=== PATIENT | female | born 1985 | race Caucasian/White ===

== ENCOUNTER 2016-12-04 02:20 | Inpatient (IN) | payer MEDICAID, OTHER ==
[2016-12-05 01:11] VITALS: BMI 31.4
[2016-12-05] MEDS ORDERED: Benzocaine/Menthol 20%-0.5% Topical Spray (60 ml) TOP PRN (05:45)
[2016-12-05] MEDS ORDERED: Oxycodone/Acetaminophen 5/325 mg Tab PO PRN ×5 (05:45→08:31)
[2016-12-05 07:09] LABS: URINE BILIRUBIN NEGATIVE (NEGATIVE); URINE BLOOD 1+ (NEGATIVE); URINE COLOR YELLOW (YELLOW); URINE GLUCOSE (UA) Normal (Normal); URINE KETONE NEGATIVE (NEGATIVE); URINE PROTEIN NEGATIVE (NEGATIVE); URINE UROBILINOGEN Normal mg/dL (0.2-1.0)
[2016-12-05 07:10] LABS: RBC URINE 3 /hpf (0-3); URINE LEUKOCYTE ESTERASE 1+ Leu/uL (Negative); WBC URINE 13 /hpf (0-5)
[2016-12-05 07:12] LABS: BLOOD UREA NITROGEN 6 mg/dL (7-17); GFR AFRICAN-AMERICAN > 60; GLUCOSE,RANDOM 85 mg/dL (65-105); SODIUM 133 mmol/L (132-148)
[2016-12-05 07:13] LABS: BILIRUBIN,TOTAL 0.5 mg/dL (0.2-1.3); CALCIUM 9.5 mg/dl (8.6-10.4); CARBON DIOXIDE 18 mmol/L (22-30); CHLORIDE 103 mmol/L (98-107); POTASSIUM 3.9 mmol/L (3.6-5.2); TOTAL PROTEIN 7.4 g/dL (6.3-8.3)
[2016-12-05 07:14] LABS: ALKALINE PHOSPHATASE 117 U/L (38-126); ALT/SGPT 25 U/L (9-52); AST/SGOT 23 U/L (14-36)
[2016-12-05] MEDS ORDERED: Lidocaine 2% Inj (20ml) ONE (07:49)
--- NOTE | 2016-12-05 08:16 | OBADHP ---
Datetime: 12/04/2016 19:22 Presentation-Admit: Vertex FHR - Baseline A Provider: 120 Amniotic Fluid Color, Provider: Meconium, Light Membranes, Provider: Ruptured Gestation - Est Wks by US: 39.0 Vital Signs Provider: Reviewed; Within Normal Limits NICHD Variability Prov Fetus A: Moderate 6-25bpm NICHD Accel Fetus A IP Provider: 15X15 FHR Category Provider Fetus A: Category I NICHD Decel Fetus A IP Provider: None Dilatation, Provider: 4 Effacement, Provider: 80 Station, Provider: -1 Datetime: 12/04/2016 14:21 IP Chief Complaint Other: at 39 weeks Gestation complains SROM 12/03/16 at 1000, clear fluid and uterine contractions today. Denies vaginal bleeding. States decrease movement. Admit Comment, IP Provider: SROM in Early Labor. Admit for Dr. Hanson for Labor Augmentation and Vagi nal Delivery. @ 39+ wks with LOF since 12/03/16 in evenign with small spurts, clear fluid, with irregular cr amping, denies VB, +FM. OB: Transfer of PNC REALTIME REPORTER: denies hx of fiboirds, ovarian cyst, STI, abnormal pap PMH: dneies PSH denies FHX: non contributiory NKDA MEDS: PNV G1Pp @ 39+ wks for IOL due to PPROM, gbs negative -admit ot L+D -npo, ivf -conto toco and efm -cervidl -pain managemetn prn Pelvic Type - PN: Adequate Extremities - PN: Normal Abdomen - PN: Normal Back - PN: Normal Breast - PN: Not Done Lungs - PN: Normal Heart - PN: Normal Thyroid - PN: Not Done Neurologic - PN: Not Done HEENT - PN: Not Done General - PN: Normal Weight - Estimated: 3200 Nitrazine Provider: Positive IP Hx Assessment: The History has been Reviewed and is Current IP Chief Complaint: Uterine contractions; Suspected ruptured membranes Genitourinary Exam: Normal DTRs - PN: Normal EGA AdmitDate IP: 39.3 IP Adm Impression: Term, intrauterine ; Active labor; Ruptured Membranes IP Admit Plan: Admit to unit; Initiate labor augmentation protocol
--- NOTE | 2016-12-05 08:16 | OBPN ---
Datetime: 12/05/2016 05:33 IP Progress Impression: Normal progression of labor IP Informed Consent Obtain: Vaginal Delivery IP Progress Plan: Continue present management; Induction Membranes, Provider: Ruptured Amniotic Fluid Color, Provider: Clear Contraction Comments Provider: q 2-3 min FHR - Baseline A Provider: 145 Gestation - Est Wks by US: 39.4 Weight - Estimated: 3300 Presentation-Admit: Vertex IP Progress Note Comment: pt seen for prgoression of labor after complianing of pressure, s/p epidur al, +FM, +LOF, denies VB, reports contraction but pain well controlled with epidural VSS VE: /+1 A/P @ 39.4 wks GA IOL for PROM, fully dilated -will start pushign with pt -anticipate nsvsd -cont current managmet Vital Signs Provider: Reviewed NICHD Accel Fetus A IP Provider: 15X15 NICHD Variability Prov Fetus A: Moderate 6-25bpm Dilatation, Provider: 10 Effacement, Provider: 100 Station, Provider: 1
--- NOTE | 2016-12-05 08:17 | OBDS ---
DELIVERY PERSONNEL Delivery Doctor: Janusz Hanson MD Scrub Nurse: Sammi Smith Administrative Professional: Leigh Reddy RN MATERNAL INFORMATION Delivery Anesthesia: Local; Epidural Medications in Delivery: Hemabate 250mcg IMx 1; Pitocin 20 units IV Estimated Blood Loss (ml): 300 Maternal Complications: None RN Comments: Liveborn Baby Boy. 9-9. Provider Comments: pt was fully dilated due to maternal exhaustion, OP positon and pushign for 3 stan r pt gave verbal consent for vacumn delivery attempt. Pt was pushing, vaccumn applied +3 station, sut ure palated prior no cervix identifed, 40cm HG , 1 pull atraumtic, deliveyr of head in direct OP post ion, loose nucha cord x 1 easily reduced, vacumn removed. thick meconium fluide, antrumatic, spontaeo us dleivy erof anterior followed by posterior shoulder followed by dleivey rof body. umbilcal cord cl amped and cut baby handed to pediatricina. cord gases collected and sent x 2. Spontaneous deliveyr of intact placent with membrnae, fundus boggy, lower uteirne segment bogyy, straight cathether inserted , 100 cclear yello urine obtained, bminaula massage, hemabet IM x 1 given. funuds firm, lower uteirn semgment firm, good hemostais, second degree perienal laceratoin noted and repaired with 2-[address] Good hemosis, co compliationd. Live male direct OP presenation vaclum assistned delivery ebl 300 ml 2nd degree perineal laceraton apgs 9,9 weigh [id number] grams LABOR SUMMARY EDC: 12/08/2016 00:00 No. Babies in Womb: 1 Attempted: No Labor Anesthesia: Epidural LABOR INFORMATION Reason for Induction: Not Applicable Onset of Labor: 12/05/2016 12:00 Cervical Ripening Agents: Cervidil Oxytocin: N/A Group B Beta Strep: Negative Antibiotics # of Doses: 0 Steroids Given: None Reason Steroids Not Administered: Not Applicable MEMBRANES Membranes Rupture Method: Spontaneous Rupture of Membranes: 12/03/2016 10:00 Length of Rupture (hrs): 45.73 Amniotic Fluid Color: Light Meconium Amniotic Fluid Amount: Large Amniotic Fluid Odor: Normal STAGES OF LABOR Stage 3 hrs: 0 Stage 3 min: 5 Total Time in Labor hrs: -4 Total Time in Labor min: -11 VAGINAL DELIVERY Episiotomy: None Laceration Extension: Second Degree Laceration Type: Perineal Laceration Repair: Yes Initial Vag Sponge Count: 10 Initial Vag Sharps Count: 1 Count Comment: 1 needle and 1 suture needle BABY A INFORMATION Delivery Date/Time: 12/05/2016 07:44 Method of Delivery: Vaginal Born in Route : No : Successful Forceps: N/A Vacuum Extraction: Successful Shoulder Dystocia : No ASSISTED DELIVERY BABY A Indication for Assisted Delivery: Maternal exhaustion Catheter Prior to Procedure: No Vacuum Number of Pulls: 1 Vacuum Number of PopOffs: 0 Vacuum Maximum Pressure Obtained: 40 Reduce Pressure btwn Ctx: Yes Vacuum Integration Assistant: [place] II Total Time Vacuum Applied: 5 seconds SHOULDER DYSTOCIA BABY A Delivery Date/Time: 12/05/2016 07:44 PRESENTATION/POSITION BABY A Presentation: Cephalic Cephalic Presentation: Vertex Vertex Position: DIrect OP Breech Presentation: N/A PLACENTA INFORMATION BABY A Placenta Delivery Time : 12/05/2016 07:49 Placenta Method of Delivery: Spontaneous Placenta Status: Delivered SCORES BABY A Heart Rate 1 min: >100 bpm Resp Effort 1 min: Good Cry Reflex Irritability 1 min: Cough or Sneeze or Pulls Away Muscle Tone 1 min: Active Motion Color 1 min: Body [place], Extremities Blue Resuscitation Effort 1 min: N/A SCORE 1 MIN: 9 Heart Rate 5 min: >100 bpm Resp Effort 5 min: Good Cry Reflex Irritability 5 min: Cough or Sneeze or Pulls Away Muscle Tone 5 min: Active Motion Color 5 min: Body [place], Extremities Blue Resuscitation Effort 5 min: N/A SCORE 5 MIN: 9 INFANT INFORMATION BABY A Gestational Age at Delivery: 39.4 Gestational Status: Term Infant Outcome : Liveborn Infant Condition : Stable Infant Sex: Male IDENTIFICATION/MEDS BABY A ID Band Number: [id number] ID Band Location: Left Leg; Left Arm Sensor Applied: Yes Sensor Number: [id number] Sensor Location : Cord Clamp Vitamin K Given : Not Given Erythromycin Given: Not Given WEIGHT/LENGTH BABY A Birthweight (gms): 3360 Weight (lb): 7 Infant Weight (oz): 6 CORD INFORMATION BABY A No. Cord Vessels: 3 Nuchal Cord : Around Neck x1, Loose Cord Blood Taken: Yes Suction: Mouth; Nose ASSESSMENT BABY A Infant Complications: None Physical Findings at Delivery: Within Normal Limits Physical Findings Other: renetta on left buttocks Respirations: Appears Normal Parole Officer/ALS Called : No Infant Care By: /Ariana ZHANG Transferred To: Nursery
[2016-12-05] MEDS ORDERED: Oxycodone/Acetaminophen 5/325 mg Tab ONE (08:21)
[2016-12-05 08:31] LABS: WHITE BLOOD COUNT 9.8 K/uL (4.8-10.8)
[2016-12-05 08:32] LABS: HEMATOCRIT 38.9 % (34.0-47.0); MEAN CELL VOLUME 77.5 fL (81.0-99.0); MEAN CORPUSCULAR HGB CONC 32.3 g/dL (33.0-37.0); MEAN PLATELET VOLUME 10.1 fL (7.2-11.7); RED CELL DISTRIBUTION WIDTH 14.7 % (11.5-14.5)
[2016-12-05] MEDS: Multiple Vitamins Tab PO SCH (14:06)
--- NOTE | 2016-12-05 14:21 | OBPN ---
Datetime: 12/04/2016 19:22 IP Progress Impression: Normal progression of labor; Reassuring heart rate IP Informed Consent Obtain: Vaginal Delivery; Risks, Benefits and Alternatives Discussed IP Procedures: Artificial ROM; Sterile Vag Exam IP Progress Plan: Continue present management; Anticipate Vaginal Delivery Membranes, Provider: Ruptured Amniotic Fluid Color, Provider: Meconium, Light FHR - Baseline A Provider: 120 Gestation - Est Wks by US: 39.0 Presentation-Admit: Vertex IP Progress Note Comment: Active Labor. Reassuring Status. Anticipate . Vital Signs Provider: Reviewed; Within Normal Limits NICHD Accel Fetus A IP Provider: 15X15 FHR Category Provider Fetus A: Category I NICHD Variability Prov Fetus A: Moderate 6-25bpm Dilatation, Provider: 4 Effacement, Provider: 80 Station, Provider: -1 NICHD Decel Fetus A IP Provider: None Datetime: 12/04/2016 14:21 Nitrazine Provider: Positive Weight - Estimated: 3200
--- NOTE | 2016-12-05 14:21 | OBHP ---
Datetime: 12/04/2016 14:21 IP Adm Impression: Term, intrauterine ; Active labor; Ruptured Membranes IP Admit Plan: Admit to unit; Initiate labor augmentation protocol Admit Comment, IP Provider: SROM in Early Labor. Admit for Dr. Hanson for Labor Augmentation and Vagi nal Delivery. Pelvic Type - PN: Adequate Extremities - PN: Normal Abdomen - PN: Normal Back - PN: Normal Breast - PN: Not Done Lungs - PN: Normal Heart - PN: Normal Thyroid - PN: Not Done Neurologic - PN: Not Done HEENT - PN: Not Done General - PN: Normal Weight - Estimated: 3200 Presentation-Admit: Vertex FHR - Baseline A Provider: 150 Membranes, Provider: Ruptured Gestation - Est Wks by US: 39.0 Nitrazine Provider: Positive IP Hx Assessment: The History has been Reviewed and is Current EGA AdmitDate IP: 39.3 Vital Signs Provider: Reviewed; Within Normal Limits IP Chief Complaint: Uterine contractions; Suspected ruptured membranes NICHD Variability Prov Fetus A: Moderate 6-25bpm NICHD Accel Fetus A IP Provider: 15X15 FHR Category Provider Fetus A: Category I NICHD Decel Fetus A IP Provider: None Dilatation, Provider: 1-2 Effacement, Provider: 50 Station, Provider: -3 Genitourinary Exam: Normal DTRs - PN: Normal
[2016-12-06 08:11] LABS: BASO % 0.4 % (0.0-2.0); EOS # 0.1 K/uL (0.0-0.7); EOS % 1.1 % (0.0-4.0); HEMATOCRIT 32.5 % (34.0-47.0); LYMPH # 2.9 K/uL (1.0-4.3); MEAN CELL VOLUME 77.4 fL (81.0-99.0); MEAN CORPUSCULAR HEMOGLOBIN 24.9 pg (27.0-31.0); MEAN CORPUSCULAR HGB CONC 32.2 g/dL (33.0-37.0); MEAN PLATELET VOLUME 9.3 fL (7.2-11.7); MONO # 0.6 K/uL (0.0-0.8); MONO % 4.6 % (0.0-10.0); RED CELL DISTRIBUTION WIDTH 14.7 % (11.5-14.5); WHITE BLOOD COUNT 12.8 K/uL (4.8-10.8)
[2016-12-06] MEDS: Multiple Vitamins Tab PO SCH (09:40)
--- NOTE | 2016-12-06 11:26 | OBPPN ---
Datetime: 12/06/2016 11:24 PP Pain Prov: Within normal limits PP Nausea Prov: Denies PP Flatus Prov: Yes PP BM Prov: No PP Breasts Prov: Normal PP Heart Prov: Normal PP Lungs Prov: Normal PP Abdomen/Uterus Prov: Normal PP Lochia Prov: Normal PP Vulva/Perineum Prov: Normal PP CVA Tenderness Prov: Normal PP Extremities Prov: Normal PP Comments Phys Exam Prov: Breast Non engorgeld b/l Adb soft, nt nd Funds; firm, below level of umbics VE: moderate locha, non foul smelling, pereinal icnsin headling well PP Impression Prov: Normal progression PP Progress Note Prov: pt seen and exmined, doign well, with no complinats pt ambuaitng, voidign, passing flatus, +breast feeding, pain well controlled VSS PE see above a/P s/p PPD #1 doign well cont current magnament -regular diet -ambuation/ breast feeding ecnurage -f/u am labs -antisicpe d/c in [place] _RTO 6 week sprecuations givne Vital Signs Provider PP: Reviewed; Within Normal Limits
--- NOTE | 2016-12-06 11:27 | OBDCSUM ---
Datetime: 12/06/2016 11:25 Discharged to, Provider: Home Follow up at, Provider: Dr Hanson Disch Instr Activity: Normal activity Disch Instr Diet: Regular Discharge Instructions, Provider: Routine instructions given Discharge Diagnosis, Provider: Term Delivered Discharge Time: 12/07/2016 09:00 Follow up in weeks, Provider: 2 weeks Disch Referrals: None Contraception discussed, Prov: Yes Disch Activity Restrictions: No sexual activity; Nothing in vagina - [place], tampons, douche Discharge Comment, Provider: d/c in AM Contraception after Delivery: Not Planning to Use
[2016-12-07 09:05] VITALS: BP 97/66; PULSE 83; RESP 18; TEMP 97.7; O2SAT 98
[2016-12-07] MEDS: Multiple Vitamins Tab PO SCH (09:32)
== END 2016-12-07 14:10 | disposition home or self-care (01) | DRG 775 ==
LOC: C.EROB 02:20 → C.4D 14:30 → C.4M 12-05 09:45
PROVIDERS: ADMIT Obstetrics & Gynecology; ATTEND Obstetrics & Gynecology
PROC: 10D07Z6 Extraction of Products of Conception, Vacuum, Via Natural or Artificial Opening (ICD-10-PCS; principal; 2016-12-05)
PROC: 0KQM0ZZ Repair Perineum Muscle, Open Approach (ICD-10-PCS; 2016-12-05)
DX: O42.12 Full-term premature rupture of membranes, onset of labor more than 24 hours following rupture (principal); O75.81 Maternal exhaustion complicating labor and delivery; O77.0 Labor and delivery complicated by meconium in amniotic fluid; O69.81X0 Labor and delivery complicated by cord around neck, without compression, not applicable or unspecified; O70.1 Second degree perineal laceration during delivery; Z3A.39 39 weeks gestation of pregnancy; Z37.0 Single live birth